=== PATIENT | male | born 1950 | race Caucasian/White ===

== ENCOUNTER 2022-07-05 11:27 | Emergency (ER) | payer OTHER, SELFPAY ==
[2022-07-05 11:31] VITALS: BP 140/87; PULSE 108; RESP 20; TEMP 37; O2SAT 95
[2022-07-05 11:33] VITALS: BP 140/87; PULSE 108; RESP 20; TEMP 37; O2SAT 95
--- NOTE | 2022-07-05 11:49 | ED.GENADULT ---
HPI - General Adult General Chief complaint: Eye Problems Stated complaint: R eye redness Time Seen by Provider: 07/05/22 11:36 History of Present Illness HPI narrative: Sunny is a 72M with a PMH of GERD and cataracts that presented to the ED with a foreign body sensation in his right eye and some swelling. It started a few days ago and he went to an urgent care yesterday and was told he has shingles. However, there is no blistering rash, he denies any pain, no facial drooping, there are no vision changes, and there was no preceding URI symptoms. Related Data Home Medications Medication Instructions Recorded Confirmed omeprazole 20 mg tablet,delayed 20 mg PO DAILY 07/05/22 07/05/22 release valacyclovir 1,000 mg PO TID 07/05/22 07/05/22 Allergies Allergy/AdvReac Type Severity Reaction Status Date / Time No Known Allergies Allergy Verified 07/05/22 11:31 Review of Systems Review of Systems: All systems reviewed & are unremarkable except as noted in HPI and below Exam Const: General: healthy appearing and no acute distress Nutritional Appearance: well nourished HENMT: Head: normal to inspection Ears: external ears normal Face/Nose/Sinus: Normal external nose present Face and sinus: normal facial exam Eyes: Other: Right eyelid is swollen, right conjunctival injection, eye is tearing up, 20/20 vision out of left eye, right eye is blurry but he states it is no different than normal Neck: Neck: normal visual inspection Chest: Chest palpation & inspection: normal inspection of the chest Resp: Effort & Inspection: normal respiratory effort Cardio: Rate: regular rate Back/Spine/Pelvis: Back: no CVA tenderness Skin: General skin exam: normal color Rashes: no rashes Neuro: General: patient oriented x3 and moves all extremities Cranial nerves: Yes Nystagmus not present Extrem: General: normal to inspection Psych: Mental Status: mental status grossly normal Course Course Emergency Course: No abnormalities were seen on fluorecin eye exam. IOP was 10mmHg. Erythromycin eye drops were administered in the ED. He was discharged and has follow up with his eye surgeon in 2 days. He was instructed to continue his valacyclovir until then. However, as he does not have a dermatomal, blistering rash that is painful herpes zoster oticus is likely. Given the swollen eyelid with with foreign body sensation blepharitis is more likely. Vital Signs Vital signs: Vital Signs Oxygen Delivery Room Air 07/05/22 11:27 Temperature 98.6 F 07/05/22 11:33 Pulse Rate 108 H 07/05/22 11:33 Respiratory Rate 20 07/05/22 11:33 Blood Pressure 140/87 07/05/22 11:33 Pulse Oximetry 95 07/05/22 11:33 Oxygen Delivery Room Air 07/05/22 11:33 Medical Decision Making Vital Signs Vital Signs: Vital Signs Oxygen Delivery Room Air 07/05/22 11:27 Temperature 98.6 F 07/05/22 11:33 Pulse Rate 108 H 07/05/22 11:33 Respiratory Rate 20 07/05/22 11:33 Blood Pressure 140/87 07/05/22 11:33 Pulse Oximetry 95 07/05/22 11:33 Oxygen Delivery Room Air 07/05/22 11:33 Discharge Plan Discharge Clinical Impression: Blepharitis Patient Disposition: Home, Self-Care Condition: Stable Instructions: Blepharitis (ED) Additional Instructions: Please keep your appt with your eye surgeon. Please continue the valacyclovir until then. Take eye ointment as prescribed. Prescriptions: New erythromycin 5 mg/gram (0.5 %) ointment 0.5 inch RIGHT EYE BID 7 Days Qty: 3.5 0RF No Action omeprazole 20 mg Tablet,Delayed Release (Dr/Ec) 20 mg PO DAILY valacyclovir 1,000 mg PO TID Follow-up/Referrals: UNKNOWN,DOCTOR [Primary Care Provider] -
[2022-07-05] MEDS: TETRACAINE HCL 0.5% OPHTH SOLN 4 ML BTL 1 DROP RIGHT EYE (12:10)
[2022-07-05] MEDS: FLUORESCEIN SOD 1 MG/STRIP RIGHT EYE (12:10)
--- NOTE | 2022-07-05 12:25 | PC.NURSE ---
ERP AT BEDSIDE PERFORMING EYE EXAM AT THIS TIME.
[2022-07-05] MEDS: ERYTHROMYCIN OPHTH OINTMENT 3.5 GM TUBE 1 APPLIC RIGHT EYE (12:27)
[2022-07-05 12:40] VITALS: BP 132/80; PULSE 92; RESP 16; O2SAT 100
== END 2022-07-05 12:40 | disposition home or self-care (01) ==
PROVIDERS: Emergency Provider Family Medicine
DX: H01.003 Unspecified blepharitis right eye, unspecified eyelid (principal)
CPT/HCPCS: 99283; A9270

== ENCOUNTER 2023-10-14 13:54 | Outpatient (CLI) | payer OTHER, SELFPAY ==
--- NOTE | ~2023-10-14 | XR_ITS ---
EXAMINATION: XR wrist LT 2V DATE: 10/14/2023 14:29 INDICATION: Left wrist pain. TECHNIQUE: 4 views of left wrist were obtained. COMPARISON: None. FINDINGS: Alignment is normal. No fracture. There is mild osteoarthritis of triscaphe joint, first ca rpometacarpal joint, and first-third metacarpophalangeal joints. IMPRESSION: 1. Mild polyarticular osteoarthritis. Reviewed, dictated and finalized at location A.
== END 2023-10-14 13:55 | disposition home or self-care (01) ==
DX: M25.532 Pain in left wrist (principal); M19.032 Primary osteoarthritis, left wrist
CPT/HCPCS: 73100